=== PATIENT | female | born 1950 | race Caucasian/White ===

== ENCOUNTER 2017-07-25 16:39 | Emergency (ER) | payer BC, OTHER ==
[2017-07-25 16:59] VITALS: O2SAT 97
[2017-07-25] MEDS ORDERED: Enalaprilat 2.5 MG/2 ML IV ONE (17:11)
[2017-07-25 17:46] LABS: BASO # 0.1 K/uL (0.0-0.2); BASO % 1.3 % (0.0-2.0); EOS # 0.1 K/uL (0.0-0.7); EOS % 0.6 % (0.0-4.0); HEMOGLOBIN 13.5 g/dL (11.0-16.0); LYMPH # 1.5 K/uL (1.0-4.3); LYMPH % 17.6 % (20.0-40.0); MEAN CELL VOLUME 90.7 fL (81.0-99.0); MEAN CORPUSCULAR HGB CONC 34.1 g/dL (33.0-37.0); MEAN PLATELET VOLUME 8.5 fL (7.2-11.7); MONO # 0.4 K/uL (0.0-0.8); MONO % 5.1 % (0.0-10.0); NEUT # 6.6 K/uL (1.8-7.0); NEUT % 75.4 % (50.0-75.0); NRBC % 0.1 % (0.0-2.0); RBC 4.37 Mil/uL (3.80-5.20); RED CELL DISTRIBUTION WIDTH 12.6 % (11.5-14.5); WHITE BLOOD COUNT 8.8 K/uL (4.8-10.8)
[2017-07-25 17:53] LABS: SQUAMOUS EPITHIAL 1 /hpf (0-5); URINE BACTERIA RARE (<OCC); URINE BILIRUBIN NEGATIVE (NEGATIVE); URINE BLOOD NEGATIVE (NEGATIVE); URINE CLARITY Clear (Clear); URINE COLOR Yellow (YELLOW); URINE GLUCOSE (UA) NORMAL (Normal); URINE LEUKOCYTE ESTERASE NEG Leu/uL (Negative); URINE PROTEIN NEGATIVE (NEGATIVE); URINE UROBILINOGEN NORMAL mg/dL (0.2-1.0)
[2017-07-25 18:07] LABS: ALB/GLOB RATIO 1.2 (1.0-2.1); ALBUMIN 4.3 g/dL (3.5-5.0); ALT/SGPT 17 U/L (9-52); AST/SGOT 25 U/L (14-36); BLOOD UREA NITROGEN 13 mg/dL (7-17); CALCIUM 8.8 mg/dl (8.6-10.4); GFR AFRICAN-AMERICAN > 60; GFR NON-AFRICAN AMERICAN > 60
[2017-07-25 18:17] LABS: B-TYPE NATRIURETIC PEPTIDE 273 pg/mL (0-900)
--- NOTE | 2017-07-25 18:18 | C.PDOC ---
History Of Present Illness 66 year old female presents to the emergency department with complaints of vertigo since this morning. Patient has a past history of vertigo, and today she states she is experiencing a headache and nausea. Time Seen by Provider: 07/25/17 17:06 Chief Complaint (Nursing): Dizziness/Lightheaded History Per: Patient History/Exam Limitations: no limitations Onset/Duration Of Symptoms: Hrs Current Symptoms Are (Timing): Still Present Associated Symptoms Preceding Syncopal Episode: Vertigo, Vertigo Worse With Change In Head Position Past Medical History Reviewed: Historical Data, Nursing Documentation, Vital Signs Vital Signs: Last Vital Signs Temp 98.0 F 07/25/17 18:34 Pulse 63 07/25/17 18:34 Resp 17 07/25/17 18:34 BP 147/82 07/25/17 18:34 Pulse Ox 97 07/26/17 00:05 - Medical History PMH: HTN, Hypercholesterolemia, Hypothyroidism Surgical History: No Surg Hx Family History: States: No Known Family Hx - Social History Hx Alcohol Use: No Hx Substance Use: No - Immunization History Hx Tetanus Toxoid Vaccination: No Hx Influenza Vaccination: No Hx Pneumococcal Vaccination: No Review Of Systems Except As Marked, All Systems Reviewed And Found Negative. Gastrointestinal: Positive for: Nausea Neurological: Positive for: Headache, Dizziness (vertigo) Physical Exam - Physical Exam Appears: Non-toxic, No Acute Distress Head: Other (vertigo exacerbated by head movements.) Ear(s): Bilateral: Normal Nose: Normal Throat: Normal ED Course And Treatment - Laboratory Results Result Diagrams: 07/25/17 17:43 07/25/17 17:43 O2 Sat by Pulse Oximetry: 97 (RA) Pulse Ox Interpretation: Normal Medical Decision Making Medical Decision Making: Plan: EKG BNP CMP Troponin CBC CXR One-View Glucose, POC Urinalysis Antivert 50mg PO Cozaar 100mg PO Pepcid 20mg IVP Toradol 30mg IVP Vasotec 2.5mg IV Zofran 4mg IVP Disposition Doctor Will See Patient In The: Office Counseled Patient/Family Regarding: Studies Performed, Diagnosis - Disposition Referrals: [facility] [Outside] [facility] [Outside] Disposition: HOME/ ROUTINE Disposition Time: 18:20 Condition: GOOD Additional Instructions: shi evaluaci'on hoy salio' normal Sigue Meclizine/Antivert 25 mg cada 6 horas bronson necessario para los mareos. Prescriptions: Meclizine [Meclizine*] 25 mg PO Q6 PRN #30 tab PRN Reason: vertigo Instructions: Vertigo (a Type of Dizziness) Forms: [employer] (Danish) Print Language: YORUBA - Clinical Impression Clinical Impression: Vertigo - Scribe Statement The provider has reviewed the documentation as recorded by the Scribe (Naif Morrison) All medical record entries made by the Scribe were at my direction and personally dictated by me. I have reviewed the chart and agree that the record accurately reflects my personal performance of the history, physical exam, medical decision making, and the department course for this patient. I have also personally directed, reviewed, and agree with the discharge instructions and disposition.
--- NOTE | 2017-07-25 18:20 | C.PDOC ---
Time Seen by Provider: 07/25/17 17:06 Chief Complaint (Nursing): Dizziness/Lightheaded Past Medical History Reviewed: Historical Data, Nursing Documentation, Vital Signs Vital Signs: Last Vital Signs Temp 98.0 F 07/25/17 18:34 Pulse 63 07/25/17 18:34 Resp 17 07/25/17 18:34 BP 147/82 07/25/17 18:34 Pulse Ox 97 07/26/17 00:06 - Medical History PMH: HTN, Hypercholesterolemia, Hypothyroidism Family History: States: No Known Family Hx - Social History Hx Alcohol Use: No Hx Substance Use: No - Immunization History Hx Tetanus Toxoid Vaccination: No Hx Influenza Vaccination: No Hx Pneumococcal Vaccination: No ED Course And Treatment - Laboratory Results Result Diagrams: 07/25/17 17:43 07/25/17 17:43 Lab Interpretation: Normal (trop/bnp neg.) ECG: Interpreted By Oh ECG Rhythm: Sinus Rhythm ECG Interpretation: Normal Rate From EC O2 Sat by Pulse Oximetry: 97 Pulse Ox Interpretation: Normal - Radiology CXR: Interpreted by Me CXR Interpretation: Yes: No Acute Disease Reevaluation Time: 18:19 Reassessment Condition: Improved Medical Decision Making Medical Decision Making: recurrent BPV, n/v resolved LOW susp of acute brain injury as vertigo is purely positional Disposition Doctor Will See Patient In The: Office Counseled Patient/Family Regarding: Studies Performed, Diagnosis - Disposition Referrals: [facility] [Outside] [facility] [Outside] Disposition: HOME/ ROUTINE Disposition Time: 18:20 Condition: GOOD Additional Instructions: shi evaluaci'on hoy salio' normal Sigue Meclizine/Antivert 25 mg cada 6 horas bronson necessario para los mareos. Prescriptions: Meclizine [Meclizine*] 25 mg PO Q6 PRN #30 tab PRN Reason: vertigo Instructions: Vertigo (a Type of Dizziness) Forms: [employer] (Polish) Print Language: CANADIAN - Clinical Impression Clinical Impression: Vertigo
[2017-07-25 18:37] VITALS: BP 147/82; PULSE 63; RESP 17; TEMP 98
--- NOTE | 2017-07-26 07:53 | RAD ---
Chest x-ray single frontal view History: Shortness of breath. Comparison: 07/25/2017 Findings: Mild to moderate venous congestion. Patchy increased markings at the left lung base. Mild nodularity at the left lung base. Enlarged ectatic aorta. Mild cardiomegaly. Degenerative changes in the spine and shoulders. Impression: Mild to moderate venous congestion. Patchy increased markings at the left lung base. Mild nodularity at the left lung base. Enlarged ectatic aorta. Mild cardiomegaly.
--- NOTE | 2017-07-26 18:19 | CARD ---
APPROVED REPORT EKG Measurement Heart [id number] <Conclusion> Sinu srhythm with baseline artifact. Otherwise normal ECG
== END 2017-07-25 18:37 | disposition home or self-care (01) ==
LOC: C.ER 16:39
DX: R42 Dizziness and giddiness (principal); I10 Essential (primary) hypertension
CPT/HCPCS: 71045; 80053; 81001; 82948; 83880; 84484; 85025; 93005; 96374; 96375; 99285; J1885; J2405